=== PATIENT | male | born 2000 | race Hispanic/Latino ===

== ENCOUNTER 2021-11-30 18:46 | Emergency (ER) | payer OTHER, SELFPAY ==
[2021-11-30 18:51] VITALS: BP 156/88; PULSE 78; RESP 18; TEMP 36.4; O2SAT 99; BMI 34.1
--- NOTE | 2021-11-30 19:04 | DI.US.S_ITS ---
PROCEDURE: US SCROTUM INDICATIONS: scrotal pain TECHNIQUE: Real-time scanning was performed of the scrotum and testicles, with image documentation. Color and pulse Doppler interrogation was performed of both testicles. COMPARISON: None. FINDINGS: Right: Testicle is normal in size at 4.3 x 2.6 x 1.8 cm, and homogenous in echotexture. Probable microlithiasis. Epididymis is normal in overall size and morphology. Trace hydrocele. No varicoceles. Overlying scrotal skin is normal in thickness. Left: Testicle is normal in size at 3.8 x 2.6 x 2.1 cm, and homogeneous in echotexture. Microlithiasis. Epididymis is within normal limits in size but slightly more prominent compared to the right and morphology. Trace hydrocele. No varicoceles. Overlying scrotal skin is normal in thickness. Doppler: Color and pulse Doppler demonstrate normal and symmetric arterial flow in both testicles. There is questionable slight increased vascularity in the left epididymis compared to the right. No abnormality identified in the left lower quadrant in the region of pain. IMPRESSION: 1. Slight prominence of the left epididymis with possible slight increased vascularity. Findings raise the possibility of left epididymitis. 2. No testicular mass. Incidental microlithiasis. 3. Trace hydroceles. No varicocele. 4. No abnormality identified in the left lower quadrant in the region of pain. If concern for intra-abdominal pathology, recommend CT abdomen pelvis with IV contrast. Dictated by: Ignacio Ricci M.D. on 11/30/2021 at 20:02 Approved by: Ignacio Ricci M.D. on 11/30/2021 at 20:06
--- NOTE | 2021-11-30 19:04 | ED_ITS ---
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 Patient was administered 100 mcg of fentanyl EN route. Patient denies any pain during the lift but felt it immediately after putting it down. Patient describes the pain as left-sided abdominal pain that radiates down to his left testicle. Patient denies any history of hernias or trauma to scrotum or testicles. Related Data Previous Rx's Medication Instructions Recorded oxycodone 5 mg tablet 5 mg PO Q6H PRN pain #20 tabs 11/30/21 tamsulosin 0.4 mg capsule (Flomax) 0.4 mg PO DAILY #7 caps 11/30/21 Allergies Allergy/AdvReac Type Severity Reaction Status Date / Time No Known Drug Allergies Allergy Verified 11/30/21 18:51 Review of Systems <JAMIR Gonzalez - Last Filed: 11/30/21 20:06> Review of Systems Narrative: Narrative: GENERAL: Denies chills, fatigue, fever, sweats. See HPI HEENT: Denies sinus pain, ear pain, sore throat, difficulty swallowing, dizziness. RESPIRATORY: Denies dyspnea, cough, wheezing, sputum. CARDIOVASCULAR: Denies chest pain, palpitations, edema. GASTROINTESTINAL: Denies vomiting, diarrhea, constipation. Endorses left- sided abdominal tenderness. : Denies dysuria, frequency, incontinence, hematuria, urinary retention, flank pain. Endorses left scrotal and testicular pain. MSK: Denies weakness, joint pain, or bony pain. SKIN: Denies rash, skin lesions, or pruritis. NEUROLOGIC: Denies weakness, dizziness, headache, numbness, confusion. PSYCHIATRIC: No concerning psychosocial issues. Patient History <JAMIR Gonzalez - Last Filed: 11/30/21 20:06> Social History Smoking Status: Never smoker Smoking Status: Never smoker alcohol intake frequency: 0-2 drinks per day Substance Use Type: does not use Exam <JAMIR Gonzalez - Last Filed: 11/30/21 20:06> Narrative Exam Narrative: Exam Narrative: GENERAL: This is a well-nourished, well-developed patient, in no acute distress HEAD: Atraumatic. Normocephalic. CARDIOVASCULAR: Regular rate and rhythm without murmurs, peripheral pulses intact, cap refill <2 sec. RESPIRATORY: Breath sounds equal and clear bilaterally. No wheezes, rales, or rhonchi. No cough. No increased respiratory effort. No accessory muscle use. GASTROINTESTINAL: Abdomen soft, nondistended without guarding or rebound. No suprapubic pain. Left-sided abdominal tenderness despite fentanyl given by EMS. MSK: Moves all extremities. Normal range of motion, no clubbing or edema. Neurovascularly intact. NEURO: A&O x 3. SKIN: Warm, dry, no rashes or lesions noted. Initial Vital Signs Initial Vital Signs: Vital Signs Temperature 97.5 F L 11/30/21 18:51 Pulse Rate 78 11/30/21 18:51 Respiratory Rate 18 11/30/21 18:51 Blood Pressure 156/88 H 11/30/21 18:51 Pulse Oximetry 99 11/30/21 18:51 Oxygen Delivery Method 11/30/21 18:51 External: uncircumcised Penis: normal penis Scrotum: scrotum normal, cremasteric reflex present, no inguinal hernias and no scrotal swelling Testes: normal <Tamera Connolly DO - Last Filed: 12/01/21 01:35> Initial Vital Signs Initial Vital Signs: Vital Signs Temperature 97.5 F L 11/30/21 18:51 Pulse Rate 78 11/30/21 18:51 Respiratory Rate 18 11/30/21 18:51 Blood Pressure 156/88 H 11/30/21 18:51 Pulse Oximetry 99 11/30/21 18:51 Oxygen Delivery Method 11/30/21 18:51 Course <JAMIR Gonzalez Last Filed: 11/30/21 20:06> Orders Ordered: ED Orders 11/30/21 19:04 US scrotum Stat 11/30/21 19:41 CT abdomen pelvis w con Stat 11/30/21 20:10 Complete Blood Count AUTO DIFF Stat Comprehensive Metabolic Panel Stat Lipase Stat 11/30/21 21:30 Urine Microscopic Stat Discontinued Medications Ketorolac Tromethamine (Ketorolac 30 Mg/Ml Vial) 30 mg IV NOW ONE Stop: 11/30/21 20:15 Last Admin: 11/30/21 20:17 Dose: 30 mg Documented By: MO Morphine Sulfate (Morphine 4 Mg/Ml Inj) 4 mg IV NOW ONE Stop: 11/30/21 21:58 Last Admin: 11/30/21 22:00 Dose: 4 mg Documented By: RL Oxycodone/Acetaminophen (Oxycodone/Apap 5/325 Prepack) 1 bottle MISC SEEINSTR O NE Stop: 11/30/21 21:58 Last Admin: 11/30/21 22:00 Dose: 1 bottle Documented By: MIKI Tamsulosin HCl (Tamsulosin 0.4 Mg Capsule) 0.4 mg PO NOW ONE Stop: 11/30/21 21:51 Last Admin: 11/30/21 22:00 Dose: 0.4 mg Documented By: MIKI Vital Signs Vital signs: Vital Signs - 8 hr 11/30/21 18:51 11/30/21 22:10 Temperature 97.5 F L Pulse Rate 78 106 H Respiratory Rate 18 18 Blood Pressure 156/88 H 137/85 Pulse Oximetry 99 98 Oxygen Delivery Method Room Air Room Air <Tamera Connolly, - Last Filed: 12/01/21 01:35> Orders Ordered: ED Orders 11/30/21 19:04 US scrotum Stat 11/30/21 19:41 CT abdomen pelvis w con Stat 11/30/21 20:10 Complete Blood Count AUTO DIFF Stat Comprehensive Metabolic Panel Stat Lipase Stat 11/30/21 21:30 Urine Microscopic Stat Discontinued Medications Ketorolac Tromethamine (Ketorolac 30 Mg/Ml Vial) 30 mg IV NOW ONE Stop: 11/30/21 20:15 Last Admin: 11/30/21 20:17 Dose: 30 mg Documented By: MO Morphine Sulfate (Morphine 4 Mg/Ml Inj) 4 mg IV NOW ONE Stop: 11/30/21 21:58 Last Admin: 11/30/21 22:00 Dose: 4 mg Documented By: MIKI Oxycodone/Acetaminophen (Oxycodone/Apap 5/325 Prepack) 1 bottle MISC SEEINSTR ONE Stop: 11/30/21 21:58 Last Admin: 11/30/21 22:00 Dose: 1 bottle Documented By: MIKI Tamsulosin HCl (Tamsulosin 0.4 Mg Capsule) 0.4 mg PO NOW ONE Stop: 11/30/21 21:51 Last Admin: 11/30/21 22:00 Dose: 0.4 mg Documented By: MIKI Vital Signs Vital signs: Vital Signs - 8 hr 11/30/21 18:51 11/30/21 22:10 Temperature 97.5 F L Pulse Rate 78 106 H Respiratory Rate 18 18 Blood Pressure 156/88 H 137/85 Pulse Oximetry 99 98 Oxygen Delivery Method Room Air Room Air MDM - Abdominal Pain <JAMIR Gonzalez - Last Filed: 11/30/21 20:06> Differential Diagnosis Differential diagnosis: Likely abdominal pain; Unlikely other (Testicular torsion) Lab Data Result diagrams: 11/30/21 20:10 11/30/21 20:10 Labs: Lab Results 11/30/21 11/30/21 11/30/21 Range/Units 20:10 20:10 21:30 WBC 15.2 H (4.5-11.0) X10^3/uL RBC 5.75 (4.5-5.9) X10^6/uL Hgb 17.2 (13.5-17.5) g/dL Hct 49.9 (41-53) % MCV 86.7 (80-100) fL MCH 29.9 (26-34) PG MCHC 34.5 (30-36) % RDW 12.9 (11.6-14.8) % Plt Count 260 (150-400) X10^3/uL Neut % (Auto) 91.1 H (50-75) % Lymph % (Auto) 5.5 L (25-40) % [place]he % (Auto) 3.4 (3-14) % Eos % (Auto) 0.0 L (2-4) % Baso % (Auto) 0.0 (0-2) % Neut # (Auto) 91506 H (1930-3883) /uL Lymph # (Auto) 800 L (4502-1387) /uL [place]he # (Auto) 500 (0-900) /uL Eos # (Auto) 0 (0-450) /uL Baso # (Auto) 0 (0-100) /uL Sodium 142 (137-145) mmol/L Potassium 4.2 (3.4-5.1) mmol/L Chloride 106 (98-107) mmol/L Carbon Dioxide 26 (22-32) mmol/L BUN 22 H (9-20) mg/dL Creatinine 1.18 (0.66-1.25) mg/dL Estimated GFR > 60 (>60) mL/min BUN/Creatinine Ratio 18.6 (6-22) Glucose 113 H (70-100) mg/dL Calcium 9.7 (8.4-10.2) mg/dL Total Bilirubin 0.7 (0.2-1.3) mg/dL AST 47 (17-59) IU/L ALT 53 H (<50) IU/L Alkaline Phosphatase 127 H (38-126) U/L Total Protein 8.4 H (6.3-8.2) g/dL Albumin 4.9 (3.5-5.0) g/dL Globulin 3.5 (1.7-4.1) g/dL Albumin/Globulin Ratio 1.4 (1.0-2.8) Lipase 42 (23-300) U/L Urine RBC None seen (0-5/HPF) Urine WBC None seen (0-5/HPF) Urine Bacteria None seen (None) Ur Culture Indicated? Cult not indicated Point of care testing: Urine Dip Bedside Urine Glucose Negative Bedside Urine Bilirubin - Negative Bedside Urine Ketone + 15 Urine Specific [place] 1.025 Bedside Urine Occult Blood - Negative Bedside Urine pH 6.0 Bedside Urine Protein - Negative Bedside Urine Urobilinogen - Negative Bedside Urine Nitrite - Negative Bedside Urine Leukocytes - Negative Esterase MDM Narrative Medical decision making narrative: 21-year-old male presents to the emergency department with left-sided abdominal and scrotal pain after lifting heavy object earlier today. Ultrasound reveals possible left scrotal hydrocele but no testicular torsion. Due to out of the proportion left-sided abd pain, CT obtained. Signed out to Dr. Connolly for completion of evaluation and treatment. <Tamera Connolly, DO - Last Filed: 12/01/21 01:35> Lab Data Labs: Lab Results 11/30/21 11/30/21 11/30/21 Range/Units 20:10 20:10 21:30 WBC 15.2 H (4.5-11.0) X10^3/uL RBC 5.75 (4.5-5.9) X10^6/uL Hgb 17.2 (13.5-17.5) g/dL Hct 49.9 (41-53) % MCV 86.7 (80-100) fL MCH 29.9 (26-34) PG MCHC 34.5 (30-36) % RDW 12.9 (11.6-14.8) % Plt Count 260 (150-400) X10^3/uL Neut % (Auto) 91.1 H (50-75) % Lymph % (Auto) 5.5 L (25-40) % Ashe % (Auto) 3.4 (3-14) % Eos % (Auto) 0.0 L (2-4) % Baso % (Auto) 0.0 (0-2) % Neut # (Auto) 74402 H (8037-0713) /uL Lymph # (Auto) 800 L (2168-6473) /uL Ashe # (Auto) 500 (0-900) /uL Eos # (Auto) 0 (0-450) /uL Baso # (Auto) 0 (0-100) /uL Sodium 142 (137-145) mmol/L Potassium 4.2 (3.4-5.1) mmol/L Chloride 106 (98-107) mmol/L Carbon Dioxide 26 (22-32) mmol/L BUN 22 H (9-20) mg/dL Creatinine 1.18 (0.66-1.25) mg/dL Estimated GFR > 60 (>60) mL/min BUN/Creatinine Ratio 18.6 (6-22) Glucose 113 H (70-100) mg/dL Calcium 9.7 (8.4-10.2) mg/dL Total Bilirubin 0.7 (0.2-1.3) mg/dL AST 47 (17-59) IU/L ALT 53 H (<50) IU/L Alkaline Phosphatase 127 H (38-126) U/L Total Protein 8.4 H (6.3-8.2) g/dL Albumin 4.9 (3.5-5.0) g/dL Globulin 3.5 (1.7-4.1) g/dL Albumin/Globulin Ratio 1.4 (1.0-2.8) Lipase 42 (23-300) U/L Urine RBC None seen (0-5/HPF) Urine WBC None seen (0-5/HPF) Urine Bacteria None seen (None) Ur Culture Indicated? Cult not indicated Point of care testing: Urine Dip Bedside Urine Glucose Negative Bedside Urine Bilirubin - Negative Bedside Urine Ketone + 15 Urine Specific [place] 1.025 Bedside Urine Occult Blood - Negative Bedside Urine pH 6.0 Bedside Urine Protein - Negative Bedside Urine Urobilinogen - Negative Bedside Urine Nitrite - Negative Bedside Urine Leukocytes - Negative Esterase Imaging Data US - Scrotum: Radiologist's Impression: [address] [address] Ultrasound Report Signed Patient: Aakash Cleary MR#: [id number] : 2000 Acct:[id number] Age/Sex: 21 / M Date of Service: 11/30/21 Loc: ED Accession Number: [id number] ?? Procedure: US scrotum Ordering Provider: Gregory Cruz PROCEDURE:? US SCROTUM ? INDICATIONS:? scrotal pain ? TECHNIQUE:? Real-time scanning was performed of the scrotum and testicles, with image documentation.? Color and pulse Doppler interrogation was performed of both testicles.? ? COMPARISON:? None. ? FINDINGS:? ? Right:? Testicle is normal in size at 4.3 x 2.6 x 1.8 cm, and homogenous in echotexture.? Probable microlithiasis.? Epididymis is normal in overall size and morphology.? Trace hydrocele.? No varicoceles.? Overlying scrotal skin is normal in thickness.? ? Left:? Testicle is normal in size at 3.8 x 2.6 x 2.1 cm, and homogeneous in echotexture.? Microlithiasis.? Epididymis is within normal limits in size but slightly more prominent compared to the right and morphology.? Trace hydrocele.? No varicoceles.? Overlying scrotal skin is normal in thickness.? ? Doppler:? Color and pulse Doppler demonstrate normal and symmetric arterial flow in both testicles.? There is questionable slight increased vascularity in the left epididymis compared to the right.? ? No abnormality identified in the left lower quadrant in the region of pain. ? IMPRESSION:? 1. Slight prominence of the left epididymis with possible slight increased vascularity.? Findings raise the possibility of left epididymitis. ? ? 2. No testicular mass.? Incidental microlithiasis. ? 3. Trace hydroceles.? No varicocele.? ? 4. No abnormality identified in the left lower quadrant in the region of pain.? ? If concern for intra-abdominal pathology, recommend CT abdomen pelvis with IV contrast.? ? Dictated by: Ignacio Ricci M.D. on 11/30/2021 at 20:02 ? ? Approved by: Ignacio Ricci M.D. on 11/30/2021 at 20:06?? MDM Narrative Medical decision making narrative: 21-year-old male presents to the emergency department with left-sided abdominal and scrotal pain after lifting heavy object earlier today. Ultrasound reveals possible left scrotal hydrocele but no testicular torsion. Due to out of the proportion left-sided abd pain, CT obtained. Signed out to Dr. Connolly for completion of evaluation and treatment. Patient signed out to myself by PILAR Cruz. Patient seen independently by myself. 21-year-old male with BMI of 34 but no other medical issues presents after lifting heavy object with left-sided flank and abdominal pain radiating to his scrotum. Patient had ultrasound which showed hydrocele but no particular christopher ge. Labs show no major changes patient was tender on exam and quite painful even after fentanyl. Toradol was much more helpful CT abdomen pelvis shows a 2 mm stone on the left with some hydro, no change to renal function no signs of infection on his urine he does have an elevated white count. Patient's pain was improved in department. Plan for Flomax, pain control and follow-up with urology. All questions answered and return precautions discussed. Discharge Plan Departure Patient Disposition: Home Clinical Impression: Kidney stone Activity Restrictions/Additional Instructions: Follow-up with primary care or Urology for recheck you have been found to have a kidney stone on the left side. Take Flomax once daily until gone. You may take ibuprofen up to 600 mg every 6 hours and/or Tylenol up to a 1000 mg every 6 hours. If inadequate for pain control you can take 1-2 tablets of narc otic pain medication every 6 hours as needed. This medication can make you sleepy do not drive, perform hazardous activities or make any major decisions while taking it. This medication will make you constipated please take a stool softener once to twice daily until stools are soft and regular. Prescription sent to [facility] in [place]. Please return for fevers worsening abdominal, back or flank pain, persistent vomiting, inability to urinate or other new or concerning symptoms. Prescriptions: New tamsulosin [Flomax] 0.4 mg capsule 0.4 mg PO DAILY Qty: 7 0RF oxycodone 5 mg tablet 5 mg PO Q6H PRN (Reason: pain) Qty: 20 0RF Referrals: Latasha Vegas MD [Physician] - Visit Report Forms: Patient Portal/API
--- NOTE | 2021-11-30 19:41 | DI.CT.S_ITS ---
PROCEDURE: CT ABDOMEN PELVIS W CON INDICATIONS: left sided abd pain TECHNIQUE: After the administration of IV contrast, axial sections were acquired from the lung bases to the pubic symphysis. Coronal and sagittal reformats were performed. For radiation dose reduction, the following was used: automated exposure control, adjustment of mA and/or kV according to patient size. COMPARISON: None. FINDINGS: Image quality: Excellent. Lung bases: There is mild dependent atelectasis. Heart: Heart is normal in size. ABDOMEN: Liver: No mass lesion. Gallbladder: Within normal limits without calcified gallstones. Biliary ducts: No biliary ductal dilatation. Pancreas: Unremarkable. Spleen: Normal in size. Adrenal Glands: No adrenal nodules. Kidneys and Ureters: There is an obstructing urinary stone measuring up to 0.2 cm in the distal left ureter with associated mild left hydroureteronephrosis. There is extensive associated perinephric stranding and fluid as well as asymmetric delayed enhancement of the left kidney. No additional renal stones identified. There is no right hydronephrosis. Stomach and Bowel: Stomach, small bowel loops, and colon are normal in caliber and wall thickness. The appendix is normal in appearance. There is colonic diverticulosis without acute diverticulitis. Peritoneum: No abnormal intraperitoneal fluid. No free air. Ventral Wall: No hernia. Abdominal Nodes: No retroperitoneal or mesenteric adenopathy by size criteria. Vessels: Aorta and inferior vena cava are normal in size. PELVIS: Pelvic Organs: Unremarkable. Bladder: Unremarkable. Pelvic Nodes: No enlarged lymph nodes. Miscellaneous: No inguinal hernias are seen. Bones: Visualized osseous structures demonstrate no suspicious focal lesions. IMPRESSION: 1. Obstructing distal left urinary stone with mild left hydroureteronephrosis. There is associated perinephric fluid and stranding as well as delayed left renal nephrogram. 2. Colonic diverticulosis without acute diverticulitis. Dictated by: Jorge Baker M.D. on 11/30/2021 at 21:08 Approved by: Jorge Baker M.D. on 11/30/2021 at 21:12
[2021-11-30] MEDS: KETOROLAC 30 MG/ML VIAL IV (20:17)
[2021-11-30 20:24] LABS: Add Manual Diff / Slide Review NO; Basophils Absolute Auto 0 /uL (0-100); Eosinophils Absolute Auto 0 /uL (0-450); Hematocrit 49.9 % (41-53); Hemoglobin 17.2 g/dL (13.5-17.5); Lymphocytes Absolute Auto 800 /uL (1100-4500); Lymphocytes Percent Auto 5.5 % (25-40); Mean Corpuscular HGB Conc 34.5 % (30-36); Mean Corpuscular Hemoglobin 29.9 PG (26-34); Mean Corpuscular Volume 86.7 fL (80-100); Monocytes Absolute Auto 500 /uL (0-900); Monocytes Percent Auto 3.4 % (3-14); Neutrophils Absolute Auto 13900 /uL (1500-7000); Neutrophils Percent Auto 91.1 % (50-75); Platelet Count 260 X10^3/uL (150-400); Red Blood Cell Count 5.75 X10^6/uL (4.5-5.9); Red Cell Distribution Width 12.9 % (11.6-14.8); White Blood Cell Count 15.2 X10^3/uL (4.5-11.0)
[2021-11-30 20:33] LABS: Alanine Aminotransferase 53 IU/L (<50); Albumin 4.9 g/dL (3.5-5.0); Albumin Globulin Ratio 1.4 (1.0-2.8); Alkaline Phosphatase 127 U/L (38-126); Aspartate Aminotransferase 47 IU/L (17-59); BUN Creatinine Ratio 18.6 (6-22); Bilirubin Total 0.7 mg/dL (0.2-1.3); Blood Urea Nitrogen 22 mg/dL (9-20); Calcium 9.7 mg/dL (8.4-10.2); Carbon Dioxide 26 mmol/L (22-32); Chloride 106 mmol/L (98-107); Estimated Glomerular Filt Rate > 60 mL/min (>60); Globulin 3.5 g/dL (1.7-4.1); Glucose 113 mg/dL (70-100); HEMOLYSIS < 15 (0-50); Lipase 42 U/L (23-300); Potassium 4.2 mmol/L (3.4-5.1); Sodium 142 mmol/L (137-145); Total Protein 8.4 g/dL (6.3-8.2)
[2021-11-30 21:57] LABS: Bacteria Urine None Seen; Culture Indicated Urine Cult Not Indicated; RBC Urine None Seen (0-5/HPF); WBC Urine None Seen (0-5/HPF)
[2021-11-30] MEDS: MORPHINE 4 MG/ML INJ IV (22:00)
[2021-11-30] MEDS: OXYCODONE/APAP 5/325 PREPACK 1 BOTTLE MISC (22:00)
[2021-11-30] MEDS: TAMSULOSIN 0.4 MG CAPSULE PO (22:00)
[2021-11-30 22:10] VITALS: BP 137/85; PULSE 106; RESP 18; O2SAT 98
== END 2021-11-30 22:16 | disposition home or self-care (01) ==
PROVIDERS: Registered Nurse; Emergency Provider Emergency Medicine
DX: N20.0 Calculus of kidney (principal)
CPT/HCPCS: 74177; 76870; 80053; 81003; 81015; 83690; 85025; 96374; 96375; 99284; J1885; J2270; Q9967